=== PATIENT | male | born 1965 | race African-American/Black ===

== ENCOUNTER 2020-10-17 18:36 | Emergency (ER) | payer MEDICARE, OTHER ==
[~2020-10-17] VITALS: Ht 177.8 cm; Wt 129.7 kg
[~2020-10-17 18:36] MED LIST: ASPIRIN325 MG PO; FOLIC ACID1 MG PO; IRON18 MG PO; LIPITOR40 MG PO; LOPRESSOR50 MG PO; LOVAZA1 GM PO; MEN'S ONE DAIL1 EACH PO; METFORMIN HCL500 MG PO; NORVASC5 MG PO; PRINIVIL20 MG PO; SPIRONOLACTONE1 EACH PO
[2020-10-17 21:05] LABS: BASOPHIL 0.3 % (0-2); EOSINOPHIL 0 % (0-5); HCT 29.4 % (42.0-52.0); HGB 9.7 g/dl (13.2-18.0); LYMPHOCYTE 2.2 % (15-48); MCV 87.8 fL (78.0-100.0); MONOCYTE 2.5 % (0-12); MPV 10.8 fL (6.0-9.5); NEUTROPHIL 91.8 % (41-80); NRBC 0.2; PLT 503 K/uL (150-400); RBC 3.35 M/uL (4.70-6.00); RDW 16.5 % (11.5-14.0)
[2020-10-17 21:07] LABS: WBC 22.3 K/uL (4.0-10.5)
[2020-10-17 21:37] LABS: ALBUMIN 2.2 g/dL (3.4-5.0); BILIRUBIN - TOTAL 0.5 mg/dL (0.2-1.0); CREATININE 5.07 mg/dL (0.67-1.17); GLOBULIN (CALCULATION) 5.3 g/dL; POTASSIUM 6.1 mmol/L (3.5-5.1); TOTAL PROTEIN 7.5 g/dL (6.4-8.2)
[2020-10-17 21:40] LABS: LACTIC ACID 1.7 mmol/L (0.4-1.9)
[2020-10-18 00:17] LABS: HCT 28.8 % (42.0-52.0); HGB 9.3 g/dL (13.2-18.0)
[2020-10-18 00:25] LABS: INR 1.7 (0.9-1.2); PROTHROMBIN TIME 19.2 SECONDS (11.8-13.4)
[2020-10-18 00:26] LABS: PTT 40.2 SECONDS (24.4-34.7)
[2020-10-18 00:31] LABS: CREATININE 5.1 mg/dL (0.67-1.17); POTASSIUM 5.3 mmol/L (3.5-5.1)
[2020-10-18 04:59] LABS: BASOPHIL 0.3 % (0-2); EOSINOPHIL 0 % (0-5); HCT 27.5 % (42.0-52.0); HGB 8.9 g/dl (13.2-18.0); LYMPHOCYTE 3.1 % (15-48); MCH 29.2 pg (25.0-31.0); MCHC 32.4 g/dL (32.0-36.0); MCV 90.2 fL (78.0-100.0); MPV 10.7 fL (6.0-9.5); NEUTROPHIL 91.3 % (41-80); NRBC 0.3; PLT 448 K/uL (150-400); RBC 3.05 M/uL (4.70-6.00); RDW 16.8 % (11.5-14.0)
[2020-10-18 05:01] LABS: WBC 19.9 K/uL (4.0-10.5)
[2020-10-18 05:04] LABS: INR 1.63 (0.9-1.2); PROTHROMBIN TIME 18.6 SECONDS (11.8-13.4)
[2020-10-18 05:05] LABS: BILIRUBIN 1+ mg/dL (NEGATIVE); BLOOD 3+ Ery/uL (NEGATIVE); COLOR YELLOW (YELLOW); GLUCOSE (U) NORMAL (NORMAL); LEUKOCYTES NEGATIVE Leu/uL (NEGATIVE); NITRITE NEGATIVE (NEGATIVE); PROTEIN 2+ mg/dL (NEGATIVE); SPECIFIC GRAVITY >=1.030 (1.001-1.030)
[2020-10-18 05:06] LABS: CLARITY SLIGHTLY HAZY (CLEAR)
[2020-10-18 05:15] LABS: BACTERIA TRACE
[2020-10-18 05:15] LABS: CREATININE 4.89 mg/dL (0.67-1.17); MAGNESIUM 2.7 mg/dL (1.8-2.4); PHOSPHORUS 8.4 mg/dL (2.6-4.7); POTASSIUM 5.6 mmol/L (3.5-5.1)
[2020-10-18 05:16] LABS: AMORPHOUS URATES CRYSTALS MODERATE; SQUAMOUS EPITHELIAL CELLS RARE
[2020-10-18 20:16] LABS: CREATININE 5.1 mg/dL (0.67-1.17); POTASSIUM 5.6 mmol/L (3.5-5.1)
== END 2020-10-18 22:18 | disposition other institution (70) ==
LOC: FER 18:36 → EDBD 18:36 → FER 18:36
PROVIDERS: Emergency Medicine; Emergency Medicine Emergency Medical Services; Internal Medicine
DX: U07.1 COVID-19 (principal); J96.01 Acute respiratory failure with hypoxia; K92.2 Gastrointestinal hemorrhage, unspecified; E11.9 Type 2 diabetes mellitus without complications; I10 Essential (primary) hypertension
CPT/HCPCS: 31500; 36415; 36600; 71045; 71250; 80048; 80053; 81001; 82271; 82803; 83605; 83735; 84100; 84145; 84484; 85014; 85018; 85025; 85610; 85730; 86850; 86900; 86901; 87040; 93005; 96365; 96366; 96367; 96368; 96375; 96376; C9113; C9399; J0692; J1100; J2250; J2354; J2543; J2704; J3010; J3370; J7030; J7040; J7050; J7060; J7070; J7120; U0002